=== PATIENT | male | born 1950 | race African-American/Black ===

== ENCOUNTER 2020-04-27 01:25 | Emergency (ER) | payer MEDICARE, OTHER ==
[~2020-04-27] VITALS: Ht 172.7 cm; Wt 82.0 kg
[2020-04-27 05:33] VITALS: BP 130/74
== END 2020-04-27 05:44 | disposition home or self-care (01) ==
LOC: ER 01:25
DX: F10.129 Alcohol abuse with intoxication, unspecified (principal); E11.9 Type 2 diabetes mellitus without complications; I10 Essential (primary) hypertension
CPT/HCPCS: 82962; 99283